=== PATIENT | male | born 1990 | race African-American/Black ===

== ENCOUNTER 2021-04-25 10:32 | Emergency (ER) | payer MEDICAID, OTHER ==
[~2021-04-25] VITALS: Ht 162.6 cm; Wt 117.9 kg
[2021-04-25 11:06] VITALS: BP 137/69
== END 2021-04-25 11:39 | disposition home or self-care (01) ==
LOC: ER 10:32
DX: H65.191 Other acute nonsuppurative otitis media, right ear (principal); G43.909 Migraine, unspecified, not intractable, without status migrainosus; Z90.49 Acquired absence of other specified parts of digestive tract

== ENCOUNTER 2023-01-30 03:06 | Emergency (ER) | payer MEDICAID ==
[~2023-01-30] VITALS: Ht 162.6 cm; Wt 116.7 kg
[2023-01-30 04:15] VITALS: BP 135/69
== END 2023-01-30 10:01 | disposition left against medical advice (07) ==
LOC: ER 03:06
DX: K08.89 Other specified disorders of teeth and supporting structures (principal); J02.9 Acute pharyngitis, unspecified; R51.9 Headache, unspecified; R13.10 Dysphagia, unspecified; Z53.21 Procedure and treatment not carried out due to patient leaving prior to being seen by health care provider

== ENCOUNTER 2023-02-02 19:55 | Emergency (ER) | payer MEDICAID ==
[~2023-02-02] VITALS: Ht 162.6 cm; Wt 115.9 kg
[2023-02-03] MEDS: IOHEXOL 350 MG/ML 100ML IJ ONE (00:29)
[2023-02-03] MEDS: IBUPROFEN 800 MG TAB PO ONE (00:31)
[2023-02-03] MEDS ORDERED: CLIN-203 PO (01:04)
[2023-02-03] MEDS ORDERED: ACE3T PO (01:04)
[2023-02-03 01:14] VITALS: BP 138/61
== END 2023-02-03 01:18 | disposition home or self-care (01) ==
LOC: ER 19:55
DX: K04.7 Periapical abscess without sinus (principal); J45.909 Unspecified asthma, uncomplicated; E11.9 Type 2 diabetes mellitus without complications; I10 Essential (primary) hypertension; R51.9 Headache, unspecified; Z88.1 Allergy status to other antibiotic agents
CPT/HCPCS: 70487; 99285; Q9967